=== PATIENT | female | born 1980 | race Caucasian/White ===

== ENCOUNTER 2018-07-21 18:02 | Observation (INO) | payer OTHER ==
[~2018-07-21] VITALS: Ht 162.6 cm; Wt 64.9 kg
[2018-07-21 18:59] VITALS: BP 118/69
== END 2018-07-21 22:25 | disposition home or self-care (01) ==
LOC: 4S 18:02
PROVIDERS: ADMIT Obstetrics & Gynecology; ATTEND Obstetrics & Gynecology
DX: O62.9 Abnormality of forces of labor, unspecified (principal); Z3A.36 36 weeks gestation of pregnancy

== ENCOUNTER 2018-08-06 00:32 | Inpatient (IN) | payer OTHER ==
[~2018-08-06] VITALS: Ht 162 cm; Wt 80.7 kg
[2018-08-06] MEDS ORDERED: RINGERS SOLUTION,LACTATED 1,000 ML IV ONE (10:29)
[2018-08-06] MEDS ORDERED: METOCLOPRAMIDE HCL 5 MG/ML 2 ML VIAL IVP ONE (10:29)
[2018-08-06] MEDS ORDERED: CITRIC ACID/SODIUM CITRATE 30 ML SOLUTION UDCUP PO ONE (10:29)
[2018-08-06] MEDS ORDERED: METOCLOPRAMIDE HCL 5 MG/ML 2 ML VIAL ONE (10:45)
[2018-08-06] MEDS ORDERED: CITRIC ACID/SODIUM CITRATE 30 ML SOLUTION UDCUP ONE (10:45)
[2018-08-06] MEDS ORDERED: GUM MASTIC/STORAX/MSAL/ALCOHOL LIQUID 0.67 ML VIAL TP ONE (10:54)
[2018-08-06] MEDS ORDERED: BUPIVACAINE HCL/DEX-WATER/PF 0.75% 2 ML AMP ONE (11:02)
[2018-08-06 11:08] LABS: BASOPHILS % (AUTO) 0.3 % (0.0-2.0); EOSINOPHILS % (AUTO) 1.1 % (1.0-6.0); HEMOGLOBIN 11.5 g/dL (12.0-16.0); LYMPHOCYTES # (AUTO) 1.7 K/uL (1.0-4.8); LYMPHOCYTES % (AUTO) 18.8 % (22.0-44.0); MEAN CORPUSCULAR HEMOGLOBIN 29.8 pg (26.0-34.0); MEAN CORPUSCULAR HGB CONC 33.8 G/dL (31.0-37.0); MEAN CORPUSCULAR VOLUME 88 fL (80-100); MONOCYTES # (AUTO) 0.7 K/uL (0.1-1.0); MONOCYTES % (AUTO) 7.3 % (2.0-9.0); NEUTROPHILS # (AUTO) 6.5 K/uL (1.8-7.7); NEUTROPHILS % (AUTO) 72.5 % (40.0-70.0); PLATELET COUNT (AUTO) 211 K/uL (150-450); RED BLOOD CELL COUNT(AUTO) 3.85 MIL/uL (4.00-5.20); RED CELL DISTRIBUTION WIDTH 13.6 % (11.5-14.5)
[2018-08-06] MEDS ORDERED: FentaNYL CITRATE-PF 100 MCG/2 ML VIAL IVP ONE (12:00)
[2018-08-06] MEDS ORDERED: OXYTOCIN 10 UNITS/ML VIAL IM ONE (12:00)
[2018-08-06] MEDS ORDERED: MORPHINE SULFATE/PF 0.5 MG/ML 10 ML AMP IVP ONE (12:00)
[2018-08-06] MEDS ORDERED: OXYTOCIN 30 UNITS/LACT RINGERS 500 ML IV ONE (12:20)
[2018-08-06] MEDS ORDERED: LANOLIN 7 GM OINTMENT TP PRN (12:30)
[2018-08-06] MEDS ORDERED: FOLI1 PO (12:39)
[2018-08-06] MEDS ORDERED: FERR-89 PO (12:40)
[2018-08-06] MEDS ORDERED: ACETAMINOPHEN 1000 MG/ISO-OSM 100 ML IV ONE (12:54)
[2018-08-06] MEDS ORDERED: ONDANSETRON HCL 4 MG/2 ML VIAL IVP PRN (13:45)
[2018-08-06] MEDS ORDERED: NALBUPHINE HCL 10 MG/ML VIAL IVP PRN (13:45)
[2018-08-06] MEDS ORDERED: DiphenhydrAMINE HCL 50 MG/ML VIAL IM PRN (13:45)
[2018-08-06] MEDS ORDERED: DEXAMETHASONE SOD PHOS 4 MG/ML VIAL IVP PRN (13:45)
[2018-08-06] MEDS: RINGERS SOLUTION,LACTATED 1,000 ML IV SCH ×2 (14:08→23:13)
[2018-08-06 14:15] VITALS: BP 110/64
[2018-08-06] MEDS ORDERED: OXYGEN THERAPY IH SCH (20:00)
[2018-08-06] MEDS: ACETAMINOPHEN 1000 MG/ISO-OSM 100 ML IV SCH (21:00)
[2018-08-06] MEDS: MAGNESIUM HYDROXIDE SUSPENSION 30 ML UDCUP PO SCH (21:01)
[2018-08-07] MEDS: ACETAMINOPHEN 1000 MG/ISO-OSM 100 ML IV SCH (04:54)
[2018-08-07 06:03] LABS: BASOPHILS % (AUTO) 0.6 % (0.0-2.0); EOSINOPHILS % (AUTO) 2.3 % (1.0-6.0); HEMATOCRIT 27.2 % (36-46); HEMOGLOBIN 9.4 g/dL (12.0-16.0); LYMPHOCYTES # (AUTO) 1.8 K/uL (1.0-4.8); LYMPHOCYTES % (AUTO) 19.3 % (22.0-44.0); MEAN CORPUSCULAR HEMOGLOBIN 30.5 pg (26.0-34.0); MEAN CORPUSCULAR HGB CONC 34.7 G/dL (31.0-37.0); MEAN CORPUSCULAR VOLUME 88 fL (80-100); MONOCYTES # (AUTO) 0.7 K/uL (0.1-1.0); MONOCYTES % (AUTO) 7.6 % (2.0-9.0); NEUTROPHILS # (AUTO) 6.4 K/uL (1.8-7.7); NEUTROPHILS % (AUTO) 70.2 % (40.0-70.0); PLATELET COUNT (AUTO)-OB 160 K/uL (150-450); RED BLOOD CELL COUNT(AUTO) 3.09 MIL/uL (4.00-5.20); RED CELL DISTRIBUTION WIDTH 13.8 % (11.5-14.5)
[2018-08-07] MEDS: OxyCODONE HCL/ACETAMINOPHEN 5-325 MG TABLET PO PRN ×2 (07:57→15:19)
[2018-08-07] MEDS: MAGNESIUM HYDROXIDE SUSPENSION 30 ML UDCUP PO SCH ×2 (08:48→20:36)
[2018-08-07] MEDS: IBUPROFEN 800 MG TABLET PO PRN (15:19)
[2018-08-08] MEDS: OxyCODONE HCL/ACETAMINOPHEN 5-325 MG TABLET PO PRN ×3 (01:05→12:13)
[2018-08-08] MEDS: IBUPROFEN 800 MG TABLET PO PRN ×2 (01:06→08:35)
[2018-08-08] MEDS: MAGNESIUM HYDROXIDE SUSPENSION 30 ML UDCUP PO SCH (08:30)
[2018-08-08] MEDS ORDERED: BISACODYL 10 MG RECTAL RECTAL SUPPOSITORY PR ONE (10:45)
[2018-08-08] MEDS ORDERED: DSS100 PO (15:21)
[2018-08-08] MEDS ORDERED: IBUP-2071 PO (15:21)
[2018-08-08] MEDS ORDERED: PREN1TAB80 PO (15:25)
== END 2018-08-08 16:25 | disposition home or self-care (01) | DRG 785 ==
LOC: OBSVTOIN 10:25 → 4S 10:25
PROVIDERS: ADMIT Obstetrics & Gynecology; ATTEND Obstetrics & Gynecology
PROC: 10D00Z1 Extraction of Products of Conception, Low, Open Approach (ICD-10-PCS; principal; 2018-08-06)
PROC: 0UB70ZZ Excision of Bilateral Fallopian Tubes, Open Approach (ICD-10-PCS; 2018-08-06)
DX: O34.211 Maternal care for low transverse scar from previous cesarean delivery (principal); Z3A.39 39 weeks gestation of pregnancy; Z37.0 Single live birth; Z30.2 Encounter for sterilization
CPT/HCPCS: 86850; 86900; 86901; 87081; 88302; J0131; J0690; J2274; J2405; J2590; J2765; J3010; J3490; J7120